=== PATIENT | female | born 1970 | race Caucasian/White ===

== ENCOUNTER → 2017-10-08 | Emergency (ER) | payer OTHER ==
[~2017-10-08] VITALS: Ht 162.6 cm; Wt 114.8 kg
[~2017-10-08] MED LIST: IBUPROFEN800 MG PO; ORPH100T PO; VASOTEC5 MG PO
== END | disposition home or self-care (01) ==
LOC: ER 18:52
DX: J06.9 Acute upper respiratory infection, unspecified (principal)

== ENCOUNTER 2019-03-13 07:06 | Outpatient (CLI) | payer OTHER | END 2019-03-13 12:00 | disposition home or self-care (01) | LOC: LAB 07:06 | DX: Z00.00 Encounter for general adult medical examination without abnormal findings (principal); I10 Essential (primary) hypertension; Z13.6 Encounter for screening for cardiovascular disorders ==

== ENCOUNTER 2019-03-13 09:09 | Outpatient (CLI) | payer OTHER | END 2019-03-13 09:24 | disposition home or self-care (01) | LOC: SONOGRAMA 09:09 | DX: N20.0 Calculus of kidney (principal) ==

== ENCOUNTER 2019-03-17 13:06 | Outpatient (CLI) | payer OTHER | END 2019-03-17 13:10 | disposition home or self-care (01) | LOC: EKG 13:06 | DX: I10 Essential (primary) hypertension (principal); Z13.6 Encounter for screening for cardiovascular disorders ==

== ENCOUNTER 2019-03-21 08:16 | Outpatient (CLI) | payer OTHER | END 2019-03-21 08:20 | disposition home or self-care (01) | LOC: LAB 08:16 | DX: R73.9 Hyperglycemia, unspecified (principal) ==

== ENCOUNTER → 2020-07-13 | Outpatient (CLI) | payer OTHER | END | disposition home or self-care (01) | LOC: PPH VACUNA 14:06 | DX: Z23 Encounter for immunization (principal) ==

== ENCOUNTER 2021-04-30 08:00 | Outpatient (CLI) | payer OTHER | END 2021-04-30 08:30 | disposition home or self-care (01) | LOC: PPH VACUNA 08:00 | PROVIDERS: ATTEND Emergency Medicine Pediatric Emergency Medicine | DX: Z23 Encounter for immunization (principal) ==

== ENCOUNTER 2021-07-17 14:58 | Emergency (ER) | payer OTHER ==
[~2021-07-17] VITALS: Ht 162.6 cm; Wt 120.2 kg
[2021-07-17] MEDS ORDERED: ENALAPRIL MALEA10 MG NGT (17:14)
== END 2021-07-17 17:32 | disposition home or self-care (01) ==
LOC: ER 14:58
DX: H01.00B Unspecified blepharitis left eye, upper and lower eyelids (principal)

== ENCOUNTER 2022-01-29 06:24 | Emergency (ER) | payer OTHER ==
[~2022-01-29] VITALS: Ht 165.1 cm; Wt 86.2 kg
[~2022-01-29 06:24] MED LIST changes: +ENALAPRIL MALEA10 MG NGT
== END 2022-01-29 09:56 | disposition home or self-care (01) ==
LOC: ER 06:24
DX: U07.1 COVID-19 (principal); I10 Essential (primary) hypertension

== ENCOUNTER 2022-04-03 01:28 | Outpatient (CLI) | payer OTHER | END 2022-04-03 01:33 | disposition home or self-care (01) | LOC: PPH VACUNA 01:28 | PROVIDERS: ATTEND Emergency Medicine Pediatric Emergency Medicine | DX: Z23 Encounter for immunization (principal) ==

== ENCOUNTER 2022-04-18 08:28 | Outpatient (CLI) | payer OTHER | END 2022-04-18 08:33 | disposition home or self-care (01) | LOC: PPH VACUNA 08:28 | PROVIDERS: ATTEND Emergency Medicine Pediatric Emergency Medicine | DX: Z23 Encounter for immunization (principal) ==

== ENCOUNTER 2022-09-03 15:57 | Emergency (ER) | payer OTHER ==
[~2022-09-03] VITALS: Ht 162.6 cm; Wt 117.9 kg
== END 2022-09-03 18:21 | disposition home or self-care (01) ==
LOC: ER 15:57
DX: J06.9 Acute upper respiratory infection, unspecified (principal); Z20.822 Contact with and (suspected) exposure to COVID-19

== ENCOUNTER 2023-01-15 08:28 | Outpatient (CLI) | payer OTHER | END 2023-01-15 08:29 | disposition home or self-care (01) | LOC: LAB 08:28 | PROVIDERS: ATTEND Obstetrics & Gynecology | DX: N39.0 Urinary tract infection, site not specified (principal) ==

== ENCOUNTER 2023-02-13 06:27 | Emergency (ER) | payer OTHER ==
[~2023-02-13] VITALS: Ht 162.6 cm; Wt 123.8 kg
== END 2023-02-13 12:14 | disposition home or self-care (01) ==
LOC: ER 06:27
DX: U07.1 COVID-19 (principal); R06.02 Shortness of breath; R53.81 Other malaise; R50.9 Fever, unspecified; R05.9 Cough, unspecified

== ENCOUNTER → 2023-04-03 | Outpatient (CLI) | payer OTHER | END | disposition home or self-care (01) | LOC: PPH VACUNA | PROVIDERS: ATTEND Emergency Medicine Pediatric Emergency Medicine | DX: Z23 Encounter for immunization (principal) | CPT/HCPCS: 90686; G0008 ==

== ENCOUNTER 2024-05-28 02:00 | Outpatient (CLI) | payer OTHER | END 2024-05-28 02:15 | disposition home or self-care (01) | LOC: PPH VACUNA 02:00 | PROVIDERS: ATTEND Emergency Medicine Pediatric Emergency Medicine | DX: Z23 Encounter for immunization (principal) ==

== ENCOUNTER 2024-10-21 14:53 | Outpatient (CLI) | payer OTHER | END 2024-10-21 14:54 | disposition home or self-care (01) | LOC: MAMO-SONO 14:53 | PROVIDERS: ATTEND Obstetrics & Gynecology | DX: N63.21 Unspecified lump in the left breast, upper outer quadrant (principal); N63.12 Unspecified lump in the right breast, upper inner quadrant ==

== ENCOUNTER 2025-07-29 13:40 | Outpatient (CLI) | payer OTHER | END 2025-07-29 13:50 | disposition home or self-care (01) | LOC: PPH VACUNA 13:40 | PROVIDERS: ATTEND Emergency Medicine Pediatric Emergency Medicine | DX: Z23 Encounter for immunization (principal) ==